=== PATIENT | male | born 1995 | race Caucasian/White ===

== ENCOUNTER 2018-07-06 02:18 | Emergency (ER) | payer SELFPAY ==
[2018-07-06 02:35] VITALS: BP 134/87
--- NOTE | 2018-07-06 02:54 | EDM.PDOC ---
ED HPI GENERAL MEDICAL PROBLEM - General Chief Complaint: ENT Problem Stated Complaint: BROKEN NOSE Time Seen by Provider: 07/06/18 02:35 Source of Information: Reports: Patient History Limitations: Reports: Intoxication - History of Present Illness INITIAL COMMENTS - FREE TEXT/NARRATIVE: Patient presents concerned of a broken nose. Reports that he fell while smoking a cigarette and stroke his nose on a door handle. Endorses etoh tonight. No LOC. No headache. No weakness. No neck pain. He is concerned that his nose is broken. nose Pain Score (Numeric/FACES): 4 - Related Data Allergies Allergy/AdvReac Type Severity Reaction Status Date / Time No Known Allergies Allergy Verified 07/06/18 02:32 Home Meds: Home Meds NK [No Known Home Meds] 07/03/14 [History] Past Medical History HEENT History: Reports: Other (See Below) Other HEENT History: states previous broken nose Social & Family History - Tobacco Use Smoking Status *Q: Current Every Day Smoker Years of Tobacco use: 4 Packs/Tins Daily: 0.3 - Caffeine Use Caffeine Use: Reports: Coffee, Energy Drinks, Tea - Alcohol Use Days Per Week of Alcohol Use: 0 Number of Drinks Per Day: 6 Total Drinks Per Week: 0 - Recreational Drug Use Recreational Drug Use: No ED ROS ENT - Review of Systems Review Of Systems: See Below Constitutional: Reports: No Symptoms HEENT: Reports: Other (no nose pain) Respiratory: Denies: Shortness of Breath Cardiovascular: Reports: No Symptoms. Denies: Chest Pain Endocrine: Reports: No Symptoms GI/Abdominal: Reports: No Symptoms, Abdominal Pain : Reports: No Symptoms Musculoskeletal: Reports: No Symptoms, Muscle Pain Skin: Reports: No Symptoms Neurological: Reports: No Symptoms Psychiatric: Reports: Hallucinations Hematologic/Lymphatic: Reports: No Symptoms Immunologic: Reports: No Symptoms ED EXAM, ENT - Physical Exam Exam: See Below Exam Limited By: No Limitations General Appearance: Alert, WD/WN Eye Exam: Bilateral Eye: EOMI Ears: Normal External Exam Nose: Nasal Deformity (deviated to the right), Nasal Swelling. No: Septal Hematoma Mouth/Throat: Normal Inspection Head: Normocephalic, Other (Nasal deformity, see above. No other facial bone instability. No malocclusion. ). No: Facial Lacerations Neck: Supple, Non-Tender, Full Range of Motion. No: Tender Midline Respiratory/Chest: No Respiratory Distress, Lungs Clear Cardiovascular: Regular Rate, Rhythm GI/Abdominal: Soft, Non-Tender Back: Normal Inspection, Paraspinal Tenderness Neurological: Alert, Oriented Psychiatric: Normal Affect, Normal Mood Skin: Warm, Dry Course - Vital Signs Last Recorded V/S: Last Vital Signs Temp 37.3 C 07/06/18 02:33 Pulse 113 H 07/06/18 02:33 Resp 18 07/06/18 02:33 BP 134/87 07/06/18 02:33 Pulse Ox 97 07/06/18 02:33 - Re-Assessments/Exams Free Text/Narrative Re-Assessment/Exam: Patient presents after fall with obvious nasal fracture. No other facial bone instability. No nasal septal hematoma. No other significant head trama. Does seem mildly intoxicated however is oriented, neuro intact, no neck pain. Given this and low risk mechanism with defer head/neck imaging. No other traumatic injuries appreciate. No intervention indicated at this time. Will need to follow up with plastic surgeon when he is home in [place]. He is being discharged in the care of a friend who will continue to monitor until sober. 07/06/18 02:56 Departure - Departure Time of Disposition: 02:49 Disposition: Home, Self-Care 01 Clinical Impression: Broken nose Qualifiers: Encounter type: initial encounter Fracture type: closed Qualified Code(s): S02.2XXA - Fracture of nasal bones, initial encounter for closed fracture - Discharge Information *PRESCRIPTION DRUG MONITORING PROGRAM REVIEWED*: Not Applicable *COPY OF PRESCRIPTION DRUG MONITORING REPORT IN PATIENT JEFF: Not Applicable Instructions: Nasal Fracture, [id number] Referrals: PCP,None [Primary Care Provider] - Additional Instructions: Call a plastic surgeon on Saturday to arrange follow-up Return to the emergency department if you noticed increased bleeding, headache, weakness, or increasing confusion.
== END 2018-07-06 03:00 | disposition home or self-care (01) ==
LOC: JP.ED 02:18
DX: S02.2XXA Fracture of nasal bones, initial encounter for closed fracture (principal); F17.210 Nicotine dependence, cigarettes, uncomplicated; W19.XXXA Unspecified fall, initial encounter
CPT/HCPCS: 99283